=== PATIENT | female | born 1950 | race Caucasian/White ===

== ENCOUNTER → 2017-09-08 | Outpatient (CLI) | payer MEDICARE, BC ==
--- NOTE | 2017-09-08 11:43 | REPMRS ---
Patient History The patient states she had a clinical breast exam in 12/2016. Patient is postmenopausal. Family history of pancreatic cancer in mother at age 89. Benign excisional biopsy of the left breast. Digital Woman Screen Mammo: September 08, 2017 - Exam #: [id number] Bilateral CC and MLO view(s) were taken. Technologist: Kim Leal, Technologist Prior study comparison: March 03, 2015, digital woman screen mammo performed at [facility]. January 08, 2013, left breast digital mammo diagnostic unilateral, performed at [facility]. FINDINGS: There are scattered fibroglandular densities. There is a stable nodule in the upper outer quadrant on the right. Previously noted nodule in the upper outer quadrant on the left has regressed somewhat.There is a moderate amount of residual fibroglandular tissue which is fairly symmetric. There is no interval development of dominant mass, architectural distortion, or clustered microcalcification typical of malignancy. There has been no change in the appearance of the mammogram from the prior studies. ASSESSMENT: BI-RADS/ACR category 2 mammogram. Benign finding(s). Recommendation Routine screening mammogram of both breasts in 1 year (for women over age 40). This mammogram was interpreted with the aid of an FDA-approved computer-aided dectection system. Electronically Signed By: Ahmet Templeton MD 09/08/17 4038
== END ==
LOC: M WHC 10:00
PROVIDERS: ATTEND Family Medicine
DX: Z12.31 Encounter for screening mammogram for malignant neoplasm of breast (principal); Z78.0 Asymptomatic menopausal state; N64.9 Disorder of breast, unspecified; Z13.820 Encounter for screening for osteoporosis
CPT/HCPCS: 77080; G0202

== ENCOUNTER → 2017-12-16 | Outpatient (REF) | payer MEDICARE, BC | LOC: M LAB REF 09:56 | DX: N39.0 Urinary tract infection, site not specified (principal) | CPT/HCPCS: 87086 ==

== ENCOUNTER → 2018-09-25 | Outpatient (CLI) | payer MEDICARE, BC ==
--- NOTE | 2018-09-25 11:20 | REPMRS ---
Patient History The patient states she had a clinical breast exam in 05/05 Family history of pancreatic cancer at age 89 in mother. Benign excisional biopsy of the left breast. Digital Woman Screen Mammo: September 25, 2018 - Exam #: [id number] Bilateral CC and MLO view(s) were taken. Technologist: Nydia Chamorro, Technologist Prior study comparison: September 08, 2017, digital woman screen mammo performed at [facility]. March 03, 2015, digital woman screen mammo performed at [facility]. January 08, 2013, left breast real time ultrasound, performed at [facility]. FINDINGS: There are scattered fibroglandular densities. There has been no change in the appearance of the mammogram from the prior studies. There is a mild amount of scattered fibroglandular density which is fairly symmetric. There is no interval development of dominant mass, architectural distortion, or clustered microcalcification suggestive of malignancy. 3-D tomosynthesis shows no additional findings. Assessment: BI-RADS/ACR category 1 mammogram. Negative. Recommendation Routine screening mammogram of both breasts in 1 year (for women over age 40). This patient's Lifetime Breast Cancer RIsk is estimated at 5.6 %. This mammogram was interpreted with the aid of an FDA-approved computer-aided dectection system. Electronically Signed By: Ahmet Templeton MD 09/25/18 7805
== END ==
LOC: M WHC 09:03
PROVIDERS: ATTEND Obstetrics & Gynecology Female Pelvic Medicine and Reconstructive Surgery
DX: Z12.31 Encounter for screening mammogram for malignant neoplasm of breast (principal)

== ENCOUNTER → 2020-04-17 | Outpatient (CLI) | payer MEDICARE, BC ==
--- NOTE | 2020-05-12 13:59 | REPMRS ---
Patient History The patient states she had a clinical breast exam in 03/2020. Patient is postmenopausal. Family history of pancreatic cancer at age 89 in mother. Benign excisional biopsy of the left breast. No Hormone Replacement Therapy Digital Woman Screen Mammo: April 17, 2020 - Exam #: [id number] Bilateral CC and MLO view(s) were taken. Technologist: Isela Bernal, Technologist Prior study comparison: September 25, 2018, bilateral digital woman screen mammo performed at [facility]. September 08, 2017, digital woman screen mammo performed at [facility]. March 03, 2015, digital woman screen mammo performed at [facility]. FINDINGS: There are scattered fibroglandular densities. The Volpara volumetric breast density category is:B. There has been no change in the appearance of the mammogram from the prior studies. There is a mild amount of scattered fibroglandular density which is fairly symmetric. There is no interval development of dominant mass, architectural distortion, or grouped microcalcification suggestive of malignancy. 3-D tomosynthesis shows no additional findings. Report was delayed due to a protracted computer network disruption experienced by this facility. No significant changes when compared with prior studies. Assessment: BI-RADS/ACR category 1 mammogram. Negative Mammogram. Recommendation Routine screening mammogram of both breasts in 1 year (for women over age 40). This patient's Lifetime Breast Cancer Risk is estimated at 5.0 %. This mammogram was interpreted with the aid of an FDA-approved computer-aided dectection system. Electronically Signed By: Ahmet Templeton MD 05/12/20 4615
== END ==
LOC: M WHC 10:31
PROVIDERS: ATTEND Obstetrics & Gynecology Female Pelvic Medicine and Reconstructive Surgery
DX: Z12.31 Encounter for screening mammogram for malignant neoplasm of breast (principal)

== ENCOUNTER → 2020-04-17 | Outpatient (CLI) | payer MEDICARE, BC ==
--- NOTE | 2020-05-19 13:20 | DEXA ---
AP SPINE L2 - L4 1.306 0.9 2.6 LT FEMUR TOTAL 0.912 -0.8 0.6 LT NECK 0.862 -1.3 0.4 RT FEMUR TOTAL 0.898 -0.9 0.5 RT NECK 0.803 -1.7 0.0 TOTAL BODY TOTAL OTHER COMMENTS: Normal Bone Densitometry of the spine. There is low bone density of the hips. The density of the spine has increased 21.8% since the initial exam on 01/04/2010. The increased 4.2% since the most recent exam on 09/08/2017. The density of the left hip has decreased 9.7% since the initial exam on 01/04/2010. The density of the left hip has increased 2.9% since the most recent exam on 09/08/2017. The density of the right hip has increased 3.8% since the initial exam on 01/04/2010. The density of the right hip has increased 3.8% since the most recent exam on 09/08/2017. FOLLOW-UP: Recommendation for the next bone density exam: 2 years. NESHA
== END ==
LOC: M WHC 10:39
PROVIDERS: ATTEND Family Medicine
DX: M81.0 Age-related osteoporosis without current pathological fracture (principal); Z12.31 Encounter for screening mammogram for malignant neoplasm of breast

== ENCOUNTER → 2020-12-08 | Outpatient (REF) | payer MEDICARE, BC ==
[~2020-12-08] MED LIST: ATOR1TAB19; BISO5TAB14; HYDR-3715 PO; HYDR12.55; NORV5TAB PO
== END ==
LOC: M LAB REF 13:44
PROVIDERS: ATTEND Dermatology
DX: L72.0 Epidermal cyst (principal)

== ENCOUNTER → 2020-12-22 | Outpatient (REF) | payer MEDICARE, BC | LOC: M LAB REF 13:50 | PROVIDERS: ATTEND Dermatology | DX: L72.0 Epidermal cyst (principal) ==

== ENCOUNTER 2021-01-03 12:23 | Emergency (ER) | payer MEDICARE, BC ==
[~2021-01-03] VITALS: Ht 167.6 cm; Wt 86.4 kg
[2021-01-03] MEDS ORDERED: ATOR1TAB19 (12:37)
[2021-01-03] MEDS ORDERED: BISO5TAB14 (12:37)
[2021-01-03] MEDS ORDERED: HYDR12.55 (12:37)
[2021-01-03] MEDS ORDERED: NORCO, ANEXSIA 5/325MG TABLET (HYDROcodone/ACETAMINOPHEN) PO ONE (13:25)
--- NOTE | 2021-01-03 13:47 | REP ---
INDICATION: right knee pain. COMPARISON: None. TECHNIQUE: Five views of the right knee are provided. FINDINGS: Five views of the right knee demonstrate normal bones, joints, and soft tissues. No fracture or subluxation is seen. No opaque foreign body noted. IMPRESSION: Negative right knee series. <Electronically signed by Ahmet Templeton > 01/03/21 0048
--- NOTE | 2021-01-03 15:04 | REP ---
INDICATION: right posterior knee pain; assess for Bakers cyst. COMPARISON: None. TECHNIQUE: Soft tissue sonography right popliteal fossa with Doppler. FINDINGS: Soft tissue sonography in the popliteal fossa shows no evidence of venous thrombosis, popliteal artery aneurysm, or Benjamin's cyst. No mass or other fluid collection is seen. IMPRESSION: Unremarkable sonography of the popliteal fossa soft tissues. <Electronically signed by Ahmet Templeton > 01/03/21 [id number]
[2021-01-03] MEDS ORDERED: HYDR-3715 PO (15:33)
[2021-01-03 16:04] VITALS: BP 220/100
[2021-01-04] MEDS ORDERED: NORV5TAB PO (21:39)
== END 2021-01-03 16:07 | disposition home or self-care (01) ==
LOC: M ED 12:23
DX: S86.911A Strain of unspecified muscle(s) and tendon(s) at lower leg level, right leg, initial encounter (principal); X58.XXXA Exposure to other specified factors, initial encounter; Y92.89 Other specified places as the place of occurrence of the external cause; I10 Essential (primary) hypertension; E78.5 Hyperlipidemia, unspecified; Z79.899 Other long term (current) drug therapy

== ENCOUNTER 2021-01-04 16:12 | Emergency (ER) | payer MEDICARE, BC ==
[~2021-01-04] VITALS: Ht 167.6 cm; Wt 86.4 kg
[~2021-01-04 16:12] MED LIST changes: -NORV5TAB PO
--- NOTE | 2021-01-04 16:48 | REP ---
INDICATION: CHEST PAIN COMPARISON: 01/06/2015 TECHNIQUE: PA and lateral. FINDINGS: The mediastinum and cardiac silhouette are normal. The lung mcdowell are clear and without acute consolidation, effusion, or pneumothorax. The skeletal structures are intact and normal. IMPRESSION: No acute cardiopulmonary process. <Electronically signed by Eleazar Cam > 01/04/21 0797
[2021-01-04 20:05] LABS: BASO % 0.4 % (0.0-1.0); EOS # 0.1 10^3/uL (0.0-0.5); EOS % 1.7 % (0.0-3.0); HEMOGLOBIN 14.1 g/dl (12.0-15.5); LYMPH # 2.3 10^3/uL (1.5-5.0); LYMPH % 30.3 % (24.0-44.0); MEAN CORPUSCULAR HEMOGLOBIN 29.1 pg (27.0-33.0); MEAN CORPUSCULAR HGB CONC 32.8 g/dl (32.0-36.5); MEAN CORPUSCULAR VOLUME 88.8 fl (80.0-96.0); MONO # 0.9 10^3/uL (0.0-0.8); MONO % 11.8 % (2.0-8.0); NEUTROPHILS # 4.3 10^3/uL (1.5-8.5); NEUTROPHILS % 55.4 % (36.0-66.0); PLATELET COUNT, AUTOMATED 243 10^3/uL (150-450); RED BLOOD COUNT 4.84 10^6/uL (4.00-5.40); WHITE BLOOD COUNT 7.7 10^3/uL (4.0-10.0)
[2021-01-04 20:18] LABS: INR 0.98; PROTHROMBIN TIME 13.2 SECONDS (12.5-14.3)
[2021-01-04] MEDS ORDERED: NS 1,000 ML IV ONE (20:25)
[2021-01-04] MEDS ORDERED: KETOROLAC 30 MG/ML 1ML VIAL IV ONE (20:25)
[2021-01-04 20:27] LABS: ALBUMIN 4.2 GM/DL (3.2-5.2); ALT/SGPT 48 U/L (12-78); BILIRUBIN,DIRECT 0.1 MG/DL (0.0-0.2); BLOOD UREA NITROGEN 21 MG/DL (7-18); CALCIUM LEVEL 10.1 MG/DL (8.8-10.2); CARBON DIOXIDE LEVEL 28 MEQ/L (21-32); CHLORIDE LEVEL 103 MEQ/L (98-107); CK-MB VALUE MASS 1.1 NG/ML (<3.6); CPK CREATINE PHOSPHOKINASE 190 U/L (26-192); CREATININE FOR GFR 0.85 MG/DL (0.55-1.30); GLOMERULAR FILTRATION RATE > 60.0 (>45); GLUCOSE, FASTING 87 MG/DL (70-100); MB/CK RELATIVE INDEX 0.58 (< OR =4); NT-PRO BNP 53 PG/ML (<125); POTASSIUM SERUM 4.5 MEQ/L (3.5-5.1); SODIUM LEVEL 138 MEQ/L (136-145); TOTAL PROTEIN 7.7 GM/DL (6.4-8.2); TROPONIN I < 0.02 NG/ML (< 0.10)
[2021-01-04 20:28] LABS: FREE T4 0.89 NG/DL (0.76-1.46); LIPASE 183 U/L (73-393)
[2021-01-04] MEDS ORDERED: cloNIDine 0.2 MG TAB PO ONE (20:40)
[2021-01-04 20:49] VITALS: BP 222/88
[2021-01-04 21:36] VITALS: BP 148/78
[2021-01-04] MEDS ORDERED: NORV5TAB PO (21:39)
--- NOTE | 2021-01-04 22:42 | ECGEPIP ---
[facility] - ED Test Date: 2021-01-04 Pat Name: ANA MARIA PADILLA Department: Room: - Gender: Female [employer]: : 1950 Requested By: Newton Garay Order Number: [id number] Reading MD: Pepito Pacheco Measurements Intervals [place] Rate: 57 P: 17 NH: 162 QRS: -3 QRSD: 90 T: 56 QT: 454 QTc: 441 Interpretive Statements Sinus bradycardia Nonspecific ST-T wave abnormalities Similar to tracing done 01-06-15 Electronically Signed on 01-04-2021 22:42:22 EDT by Pepito Pacheco
== END 2021-01-04 22:13 | disposition home or self-care (01) ==
LOC: M ED 16:12
DX: I10 Essential (primary) hypertension (principal); E78.5 Hyperlipidemia, unspecified; Z79.899 Other long term (current) drug therapy
CPT/HCPCS: 36415; 71046; 80048; 80076; 82550; 82553; 83690; 83880; 84439; 84443; 84484; 85025; 85610; 85730; 93005; 96361; 96374; 99284; J1885

== ENCOUNTER → 2021-02-11 | Outpatient (REF) | payer MEDICARE, BC ==
[~2021-02-11] MED LIST changes: +NORV5TAB PO
== END ==
LOC: M LAB REF 14:06
PROVIDERS: ATTEND Physician Assistant
DX: L72.8 Other follicular cysts of the skin and subcutaneous tissue (principal)

== ENCOUNTER → 2021-02-25 | Outpatient (CLI) | payer MEDICARE, BC ==
[~2021-02-25] MED LIST changes: +E-Z-GAS II EFFERVESCENT PACKET (SODIUM BICARB./CITRIC ACID/SIMETHICONE) As Ordered ONE; +E-Z-HD 98% w/w 340GM SUSP BTL As Ordered ONE; +E-Z-PAQUE 96% w/w SUSP 176GM BTL As Ordered ONE
--- NOTE | 2021-02-26 18:38 | REP ---
INDICATION: DYSPHAGIA. COMPARISON: None. TECHNIQUE: This procedure was performed under the direct supervision of Dr. Diamond. Images were reviewed with Dr. Diamond. Liquid barium and gas producing granules were given in the erect position as well as liquid barium in the prone oblique positions in order to perform a double contrast esophagram examination. A combination of fluoroscopy, spot films and last image hold technology was utilized. 0.9 minutes of fluoro time was utilized for this procedure. FINDINGS: A single view PA chest x-ray is submitted as a privacy analyst film. There is no change compared to a previous chest x-ray performed on 01/04/2021.. The oral and pharyngeal stages of deglutition are unremarkable. Esophageal transport is prompt and efficient and there is no esophagitis, stricture or mucosal ring. There is a small sliding-type hiatal hernia.There is gastroesophageal reflux demonstrated to the level of the thoracic inlet IMPRESSION: There is a small sliding-type hiatal hernia. There is gastroesophageal reflux demonstrated to the level of the thoracic inlet. <Electronically signed by Chuy Paula > 02/25/21 1637 <Electronically signed by Marky Diamond > 02/26/21 0144
== END ==
LOC: M RAD 08:41
PROVIDERS: ATTEND Physician Assistant Medical
DX: R13.10 Dysphagia, unspecified (principal); K44.9 Diaphragmatic hernia without obstruction or gangrene; K21.9 Gastro-esophageal reflux disease without esophagitis

== ENCOUNTER 2021-05-19 13:17 | Emergency (ER) | payer MEDICARE, BC ==
[~2021-05-19] VITALS: Ht 167.6 cm; Wt 86.1 kg
[~2021-05-19 13:17] MED LIST changes: -E-Z-GAS II EFFERVESCENT PACKET (SODIUM BICARB./CITRIC ACID/SIMETHICONE) As Ordered ONE; -E-Z-HD 98% w/w 340GM SUSP BTL As Ordered ONE; -E-Z-PAQUE 96% w/w SUSP 176GM BTL As Ordered ONE
[2021-05-19 13:18] VITALS: BP 179/81
== END 2021-05-19 13:39 | disposition left against medical advice (07) ==
LOC: M ED 13:17
DX: Z53.29 Procedure and treatment not carried out because of patient's decision for other reasons (principal)

== ENCOUNTER → 2021-06-03 | Outpatient (CLI) | payer MEDICARE, BC ==
--- NOTE | 2021-06-03 10:14 | REP ---
INDICATION: EDWIN SCR MAMMO/Z12.31. COMPARISON: Multiple TECHNIQUE: Digital screening mammography was carried out bilaterally in the CC and MLO projections using both 2D and 3D modalities and compared to the prior exams. By history, the patient has no complaints of a palpable breast abnormality or other significant breast complaints. FINDINGS: The breasts are unchanged in size and shape. Scattered dense heterogenous fibroglandular elements are again seen bilaterally in a stable appearing pattern. There are no anthony soft tissue densities or spiculated masses. There is no internal architectural distortion. In the lower inner quadrant of the right breast there is a new grouping of calcifications within 1 sq cm breast tissue which appear to have a variance in size, shape, and radiographic density. There are other calcifications seen bilaterally which are stable and benign. The Volpara volumetric breast density pattern is b. IMPRESSION: BIRADS/ACR category 0 mammogram. Right breast calcifications as described above for which diagnostic digital magnified spot compression views are recommended in the CC and true lateral projections. This patient's Tyrer-Cuzick lifetime breast cancer risk assessment score is 4.7%. This mammogram was interpreted with the aid of an FDA-approved computer-aided detection system. The patient states she had a clinical breast exam in over a year. The patient letter being requested is M0. RECOMMENDATION: As above <Electronically signed by mOar Esparza > 06/03/21 1011
== END ==
LOC: M WHC 09:21
PROVIDERS: ATTEND Obstetrics & Gynecology Female Pelvic Medicine and Reconstructive Surgery
DX: Z12.31 Encounter for screening mammogram for malignant neoplasm of breast (principal)

== ENCOUNTER → 2021-06-15 | Outpatient (CLI) | payer MEDICARE, BC ==
--- NOTE | 2021-06-15 09:03 | REP ---
INDICATION: ADD VIEWS RIGHT CALCS. COMPARISON: Multiple TECHNIQUE: Diagnostic digital magnified spot compression views of the right breast over a grouping of calcifications in the lower inner quadrant was carried out in the CC, MLO, and true lateral projections. FINDINGS: The calcifications seen in the right breast lower inner quadrant vary in size, shape, and radiographic density. These have a suspicious appearance. Malignancy cannot be ruled out. IMPRESSION: BIRADS/ACR category 4 mammogram. Right breast calcifications as described above and for which biopsy is recommended. The patient letter being requested is M4. RECOMMENDATION: As above <Electronically signed by Omar Esparza > 06/15/21 0879
== END ==
LOC: M WHC 08:00
PROVIDERS: ATTEND Obstetrics & Gynecology Female Pelvic Medicine and Reconstructive Surgery
DX: Z12.31 Encounter for screening mammogram for malignant neoplasm of breast (principal); N64.9 Disorder of breast, unspecified

== ENCOUNTER → 2021-06-29 | Outpatient (CLI) | payer MEDICARE, BC ==
[2021-06-29 08:54] VITALS: BP 140/72
--- NOTE | 2021-06-29 10:38 | REP ---
INDICATION: OTHER DISDR BREAST RIGHT STEREO BX. COMPARISON: 06/03/2021, 06/15/2021. TECHNIQUE: ML and CC views right breast performed following stereotactic biopsy of microcalcifications in the medial aspect of the right breast. FINDINGS: A biopsy clip is seen at the appropriate site of stereotactic biopsy in the medial right breast. There is a small amount of post biopsy hematoma at that location. IMPRESSION: Stereotactic biopsy right breast with marker clip placed medially at the site of the previously identified clustered microcalcifications. RECOMMENDATION: None. <Electronically signed by Marky Diamond > 06/29/21 0900
--- NOTE | 2021-06-29 15:52 | REP ---
INDICATION: OTHER DISDR BREAST RIGHT STEREO BX. COMPARISON: 06/03/2021, 06/15/2021. TECHNIQUE: Specimen radiograph performed. FINDINGS: Multiple tiny calcifications are seen in the specimens. IMPRESSION: Successful stereotactic sampling of clustered microcalcifications medial right breast. RECOMMENDATION: None. <Electronically signed by Marky Diamond > 06/29/21 1549
--- NOTE | 2021-06-29 15:52 | REP ---
INDICATION: OTHER DISDR BREAST RIGHT STEREO BX. COMPARISON: None. TECHNIQUE: This procedure is performed by Ana Ferguson RUST, under the direct supervision of Dr. Diamond. The risks and benefits of the procedure were explained to the patient and informed consent was obtained both verbally and written. Directly prior to the start of the procedure, a formal timeout was done in the procedure room. The cranial caudal inferior to superior approach was utilized on the prone table. The right breast microcalcification's were localized using mammographic guidance. The skin was prepped and draped in a sterile fashion. Three ml of buffered lidocaine was used as a local anesthetic. FINDINGS: A 10 gauge mammotome vacuum assisted biopsy device was inserted and advanced into the breast lesion and 6 core biopsy samples were obtained. A marker clip shaped 3 was placed at the biopsy site. The patient tolerated the procedure well and there were no immediate complications. After the appropriate amount of monitored convalescence the patient was discharged from the department. IMPRESSION: Stereotactic guided right breast biopsy with micro clip placement. <Electronically signed by Ana Ferguson > 06/29/21 1037 <Electronically signed by Marky Diamond > 06/29/21 1548
== END ==
LOC: M WHCPRO 07:34
PROVIDERS: ATTEND Obstetrics & Gynecology Female Pelvic Medicine and Reconstructive Surgery
DX: D05.11 Intraductal carcinoma in situ of right breast (principal)

== ENCOUNTER → 2021-07-22 | Outpatient (CLI) | payer MEDICARE, BC ==
[~2021-07-22] MED LIST changes: +AMLO1TAB25; +HYDR-3490
[2021-07-22 11:41] LABS: CALCIUM LEVEL 9.8 MG/DL (8.8-10.2); CREATININE FOR GFR 0.99 MG/DL (0.55-1.30); POTASSIUM SERUM 3.3 MEQ/L (3.5-5.1)
== END ==
LOC: M LAB 10:18
PROVIDERS: ATTEND Surgery
DX: D05.11 Intraductal carcinoma in situ of right breast (principal)

== ENCOUNTER 2021-07-23 15:36 | Emergency (ER) | payer MEDICARE, BC ==
[~2021-07-23] VITALS: Ht 167.6 cm; Wt 85.7 kg
[~2021-07-23 15:36] MED LIST changes: -AMLO1TAB25; -HYDR-3490
[2021-07-23] MEDS ORDERED: AMLO1TAB25 (15:53)
[2021-07-23] MEDS ORDERED: HYDR-3490 (15:53)
[2021-07-23 17:28] LABS: BASO % 0.2 % (0.0-1.0); EOS # 0.1 10^3/uL (0.0-0.5); HEMATOCRIT 40.8 % (36.0-47.0); HEMOGLOBIN 13.3 g/dl (12.0-15.5); LYMPH # 1.9 10^3/uL (1.5-5.0); LYMPH % 23.7 % (24.0-44.0); MEAN CORPUSCULAR HEMOGLOBIN 29.1 pg (27.0-33.0); MEAN CORPUSCULAR HGB CONC 32.6 g/dl (32.0-36.5); MEAN CORPUSCULAR VOLUME 89.3 fl (80.0-96.0); NEUTROPHILS % 62.9 % (36.0-66.0); PLATELET COUNT, AUTOMATED 220 10^3/uL (150-450); RED BLOOD COUNT 4.57 10^6/uL (4.00-5.40)
[2021-07-23 17:39] LABS: INR 0.95
[2021-07-23 17:40] LABS: PARTIAL THROMBOPLASTIN TIME 36.7 SECONDS (25.9-37.0)
--- NOTE | 2021-07-23 18:17 | REP ---
INDICATION: swelling, pain, no injury. TECHNIQUE: Multiple ultrasonographic images of the deep venous structures of the left thigh were obtained from the level of the common femoral vein to the popliteal vein in the longitudinal and transverse scan planes along with Doppler interrogation and color flow Doppler imaging. Comparison images of the contralateral left common femoral vein with compression were done. Additional imaging through the calf is also performed. FINDINGS: There is no abnormal echogenic material seen within any of the visualized deep venous structures of the thigh through the popliteal fossa that would suggest acute thrombosis. Coaptation is unremarkable throughout. Doppler interrogation shows an expected response to respiratory variability and augmentation. The color flow Doppler images show what appears to be a normal vascular pattern throughout. Peroneal vein and posterior tibial veins could not be seen secondary to lower extremity edema in the right calf. However there is a hypoechoic focus 11.9 x 2.2 x 4.3 cm deep to the fascia and subcutaneous fat, intramuscular. This has no color flow within it. IMPRESSION: 1. There is no ultrasonographic evidence of deep venous thrombosis involving any of the visualized deep venous structures of the left thigh as described above. 2. There is a posterior left calf 11.9 x 2.2 by 4.3 cm hypoechoic focus consistent with fluid, most likely hematoma. There was no color flow through this. This is intramuscular and deep to the subcutaneous soft tissues. 3. The calf veins could not be seen due to associated swelling. Accredited by the [employer] in Vascular Peripheral Ultrasound. <Electronically signed by Stepan Stout > 07/23/21 6139
[2021-07-23 18:19] LABS: BLOOD UREA NITROGEN 18 MG/DL (7-18); C REACTIVE PROTEIN QUANTITATIV 0.57 MG/DL (0.00-0.30); CALCIUM LEVEL 9.7 MG/DL (8.8-10.2); CARBON DIOXIDE LEVEL 25 MEQ/L (21-32); CHLORIDE LEVEL 106 MEQ/L (98-107); CREATININE FOR GFR 0.82 MG/DL (0.55-1.30); GLOMERULAR FILTRATION RATE > 60.0 (>39); GLUCOSE, FASTING 95 MG/DL (70-100); POTASSIUM SERUM 3.9 MEQ/L (3.5-5.1); SODIUM LEVEL 141 MEQ/L (136-145)
[2021-07-23 18:21] LABS: ERYTHROCYTE SEDIMENTATION RATE 33 mm/hr (0-30)
[2021-07-23 18:55] VITALS: BP 122/76
--- NOTE | 2021-07-24 06:46 | ED PDOC ---
Post-Departure Follow-Up dr pennington and hal meza faxed formal report of us extemity for Maria R Alonso MD Jul 24, 2021 06:46
== END 2021-07-23 18:57 | disposition home or self-care (01) ==
LOC: M ED 15:36
DX: S80.11XA Contusion of right lower leg, initial encounter (principal); X58.XXXA Exposure to other specified factors, initial encounter; Y92.89 Other specified places as the place of occurrence of the external cause; I10 Essential (primary) hypertension; E78.5 Hyperlipidemia, unspecified; Z79.899 Other long term (current) drug therapy

== ENCOUNTER 2021-12-04 04:02 | Emergency (ER) | payer MEDICARE, BC ==
[~2021-12-04] VITALS: Ht 167.6 cm; Wt 84.1 kg
[~2021-12-04 04:02] MED LIST changes: +AMLO1TAB25 PO; -ATOR1TAB19; +ATOR1TAB19 PO; -BISO5TAB14; +BISO5TAB14 PO; +HYDR-3490 PO
[2021-12-04 05:20] LABS: BASO % 0.2 % (0.0-1.0); EOS # 0.1 10^3/uL (0.0-0.5); EOS % 1.1 % (0.0-3.0); HEMATOCRIT 41.4 % (36.0-47.0); HEMOGLOBIN 13.7 g/dl (12.0-15.5); LYMPH # 1.3 10^3/uL (1.5-5.0); LYMPH % 22.6 % (24.0-44.0); MEAN CORPUSCULAR HGB CONC 33.1 g/dl (32.0-36.5); MEAN CORPUSCULAR VOLUME 87.5 fl (80.0-96.0); MONO # 0.6 10^3/uL (0.0-0.8); MONO % 10.3 % (2.0-8.0); NEUTROPHILS # 3.7 10^3/uL (1.5-8.5); NEUTROPHILS % 65.1 % (36.0-66.0); PLATELET COUNT, AUTOMATED 187 10^3/uL (150-450); RED BLOOD COUNT 4.73 10^6/uL (4.00-5.40); WHITE BLOOD COUNT 5.6 10^3/uL (4.0-10.0)
[2021-12-04 05:31] LABS: CK-MB VALUE MASS < 1.0 NG/ML (<3.6); CPK CREATINE PHOSPHOKINASE 127 U/L (26-192); MB/CK RELATIVE INDEX 0.79 (< OR =4)
[2021-12-04 05:40] LABS: BLOOD UREA NITROGEN 18 MG/DL (7-18); CALCIUM LEVEL 8.8 MG/DL (8.8-10.2); CARBON DIOXIDE LEVEL 23 MEQ/L (21-32); CHLORIDE LEVEL 105 MEQ/L (98-107); GLOMERULAR FILTRATION RATE > 60.0 (>39); GLUCOSE, FASTING 169 MG/DL (70-100); MAGNESIUM LEVEL 1.9 MG/DL (1.8-2.4); POTASSIUM SERUM 3.3 MEQ/L (3.5-5.1); SODIUM LEVEL 139 MEQ/L (136-145)
[2021-12-04] MEDS ORDERED: ISOVUE-370 76% 100ML VIAL As Ordered ONE (07:07)
[2021-12-04] MEDS ORDERED: MECLIZINE 25 MG TABLET PO ONE (07:25)
[2021-12-04] MEDS ORDERED: ONDANSETRON 4MG/2ML VIAL IV ONE (08:30)
[2021-12-04] MEDS ORDERED: bisoproloL fumarate 5 MG TAB PO ONE (08:35)
[2021-12-04] MEDS ORDERED: TAMO20TA8 PO (08:45)
[2021-12-04 08:51] VITALS: BP 174/82
[2021-12-04 09:22] LABS: INR 0.98; PROTHROMBIN TIME 13.4 SECONDS (12.7-14.5)
[2021-12-04 09:23] LABS: PARTIAL THROMBOPLASTIN TIME 33.3 SECONDS (25.9-37.0)
[2021-12-04 09:56] LABS: RSV AMPLIFICATION NEGATIVE (NEGATIVE)
[2021-12-04] MEDS ORDERED: ONDA4TAB6 PO (10:51)
[2021-12-04] MEDS ORDERED: MECL-86 PO (10:51)
[2021-12-04 11:05] VITALS: BP 123/58
== END 2021-12-04 11:00 | disposition home or self-care (01) ==
LOC: M ED 04:02
DX: H81.399 Other peripheral vertigo, unspecified ear (principal); I10 Essential (primary) hypertension; E78.9 Disorder of lipoprotein metabolism, unspecified; Z79.899 Other long term (current) drug therapy
CPT/HCPCS: 36415; 70450; 70496; 70498; 70551; 71045; 80048; 82550; 82553; 83735; 84443; 84484; 85025; 85610; 85730; 87631; 93005; 93041; 94760; 96374; 99285; J2405; Q9967

== ENCOUNTER → 2022-06-06 | Outpatient (CLI) | payer MEDICARE, BC ==
[~2022-06-06] MED LIST changes: +MECL-86 PO; +ONDA4TAB6 PO; +TAMO20TA8 PO
== END ==
LOC: M WHC 09:31
PROVIDERS: ATTEND Surgery
DX: Z12.31 Encounter for screening mammogram for malignant neoplasm of breast (principal); D05.11 Intraductal carcinoma in situ of right breast
CPT/HCPCS: 77066; G0279

== ENCOUNTER → 2022-10-19 | Outpatient (CLI) | payer MEDICARE, BC | LOC: M RAD 07:43 | PROVIDERS: ATTEND Family Medicine | DX: K80.20 Calculus of gallbladder without cholecystitis without obstruction (principal); R10.30 Lower abdominal pain, unspecified ==

== ENCOUNTER → 2023-06-16 | Outpatient (CLI) | payer MEDICARE, BC | LOC: M WHC 09:19 | PROVIDERS: ATTEND Internal Medicine Hematology & Oncology | DX: D05.11 Intraductal carcinoma in situ of right breast (principal); Z12.31 Encounter for screening mammogram for malignant neoplasm of breast ==

== ENCOUNTER → 2024-06-19 | Outpatient (CLI) | payer MEDICARE, BC ==
[~2024-06-19] MED LIST changes: +ONDA-282 PO; -ONDA4TAB6 PO
== END ==
LOC: M WHC 09:47
PROVIDERS: ATTEND Obstetrics & Gynecology Female Pelvic Medicine and Reconstructive Surgery
DX: Z12.31 Encounter for screening mammogram for malignant neoplasm of breast (principal)

== ENCOUNTER → 2024-07-10 | Outpatient (CLI) | payer MEDICARE, BC | LOC: M WHC 10:48 | PROVIDERS: ATTEND Obstetrics & Gynecology Female Pelvic Medicine and Reconstructive Surgery | DX: M85.89 Other specified disorders of bone density and structure, multiple sites (principal); Z78.0 Asymptomatic menopausal state; M47.816 Spondylosis without myelopathy or radiculopathy, lumbar region ==

== ENCOUNTER → 2024-08-08 | Outpatient (CLI) | payer MEDICARE, BC ==
[2024-08-08 13:43] LABS: BASO % 0.6 % (0.0-1.0); EOS # 0.1 10^3/uL (0.0-0.5); EOS % 1.5 % (0.0-3.0); HEMOGLOBIN 13.9 g/dl (12.0-15.5); LYMPH % 31.1 % (24.0-44.0); MEAN CORPUSCULAR HEMOGLOBIN 30.2 pg (27.0-33.0); MEAN CORPUSCULAR HGB CONC 33.1 g/dl (32.0-36.5); MEAN CORPUSCULAR VOLUME 91.3 fl (80.0-96.0); MONO # 0.8 10^3/uL (0.0-0.8); MONO % 11.4 % (2.0-8.0); NEUTROPHILS # 3.6 10^3/uL (1.5-8.5); NEUTROPHILS % 55.1 % (36.0-66.0); PLATELET COUNT, AUTOMATED 228 10^3/uL (150-450); WHITE BLOOD COUNT 6.6 10^3/uL (4.0-10.0)
[2024-08-08 14:11] LABS: CREATININE, URINE 92.3 MG/DL
[2024-08-08 14:12] LABS: ALKALINE PHOSPHATASE 67 U/L (35-104); ALT/SGPT 75 U/L (7.0-40); AST/SGOT 61 U/L (<34); BILIRUBIN,TOTAL 0.8 MG/DL (0.3-1.2); BLOOD UREA NITROGEN 17 MG/DL (9-23); CALCIUM LEVEL 9.9 MG/DL (8.3-10.6); CARBON DIOXIDE LEVEL 27 MMOL/L (20-31); CHLORIDE LEVEL 105 MMOL/L (98-107); CHOLESTEROL LEVEL 160 MG/DL (<200); CHOLESTEROL RISK RATIO 2.74 (<5); CREATININE FOR GFR 0.88 MG/DL (0.55-1.30); GLOMERULAR FILTRATION RATE > 60.0 (>39); GLUCOSE, FASTING 96 MG/DL (74-106); HDL CHOLESTEROL 58.3 MG/DL (>40); LDL CHOLESTEROL 68.5 MG/DL (<100); NON-HDL-C 101.7 MG/DL; POTASSIUM SERUM 4.6 MMOL/L (3.5-5.1); SODIUM LEVEL 138 MMOL/L (136-145); TOTAL PROTEIN 7.7 G/DL (5.7-8.2); TRIGLYCERIDES LEVEL 166 MG/DL (<150)
[2024-08-08 14:14] LABS: FREE T4 0.83 NG/DL (0.89-1.76); THYROID STIMULATING HORMONE 2.757 uIU/ML (0.55-4.78)
[2024-08-08 14:26] LABS: HEMOGLOBIN A1c 5.4 % (4.0-6.0)
== END ==
LOC: M PLALAB 10:21
PROVIDERS: ATTEND Student in an Organized Health Care Education/Training Program
DX: Z76.89 Persons encountering health services in other specified circumstances (principal); I10 Essential (primary) hypertension; Z13.220 Encounter for screening for lipoid disorders; Z13.1 Encounter for screening for diabetes mellitus; Z13.29 Encounter for screening for other suspected endocrine disorder; Z13.31 Encounter for screening for depression

== ENCOUNTER → 2024-11-26 | Outpatient (CLI) | payer MEDICARE, BC | LOC: M WHC 08:58 → M RAD 09:38 | PROVIDERS: ATTEND Student in an Organized Health Care Education/Training Program | DX: I10 Essential (primary) hypertension (principal) ==

== ENCOUNTER → 2025-08-08 | Outpatient (CLI) | payer MEDICARE, BC | LOC: M WHC 12:45 | PROVIDERS: ATTEND Internal Medicine Hematology & Oncology | DX: Z12.31 Encounter for screening mammogram for malignant neoplasm of breast (principal) ==

== ENCOUNTER → 2025-08-19 | Outpatient (REF) | payer MEDICARE, BC ==
[2025-08-19 18:19] LABS: APPEARANCE, URINE CLOUDY (CLEAR); BACTERIA, URINE AUTO 1+ (NEGATIVE); BILIRUBIN, URINE AUTO NEGATIVE (NEGATIVE); BLOOD, URINE BLOOD 1+ (NEGATIVE); GLUCOSE, URINE (UA) AUTO NEGATIVE (NEGATIVE); KETONE, URINE AUTO NEGATIVE (NEGATIVE); LEUKOCYTE ESTERASE, URINE AUTO 2+ (NEGATIVE); MUCUS, URINE SMALL (NEGATIVE); NITRITE, URINE AUTO NEGATIVE (NEGATIVE); PROTEIN, URINE AUTO NEGATIVE (NEGATIVE); RBC, URINE AUTO 29 /HPF (0-3); SPECIFIC GRAVITY URINE AUTO 1.017 (1.002-1.035); SQUAMOUS EPITHELIAL CELL UR AU 14 /HPF (0-6); TRANSITIONAL EPITHELIAL AUTO 1 /HPF; UROBILINOGEN, URINE AUTO 0.2 mg/dL (0.0-2.0); WBC, URINE AUTO 157 /HPF (0-3)
== END ==
LOC: M SFHCPLAZ 14:32
PROVIDERS: ATTEND Family Medicine
DX: R39.9 Unspecified symptoms and signs involving the genitourinary system (principal)

== ENCOUNTER → 2025-08-19 | Outpatient (CLI) | payer MEDICARE, BC ==
[2025-08-19 18:46] LABS: PLATELET COUNT, AUTOMATED 248 10^3/uL (150-450)
[2025-08-19 19:02] LABS: ALT/SGPT 80.0 U/L (7.0-40); AST/SGOT 70.0 U/L (<34); CALCIUM LEVEL 10.6 MG/DL (8.3-10.6); CARBON DIOXIDE LEVEL 25.0 MMOL/L (20-31); CHLORIDE LEVEL 104.0 MMOL/L (98-107); CHOLESTEROL LEVEL 149.0 MG/DL (<200); CHOLESTEROL RISK RATIO 2.83 (<5); CREATININE FOR GFR 0.98 MG/DL (0.55-1.30); GLOMERULAR FILTRATION RATE 60.6 (>39); LDL CHOLESTEROL 56.7 MG/DL (<100); NON-HDL-C 96.5 MG/DL; POTASSIUM SERUM 4.3 MMOL/L (3.5-5.1); SODIUM LEVEL 140.0 MMOL/L (136-145); TRIGLYCERIDES LEVEL 199.0 MG/DL (<150)
[2025-08-19 19:05] LABS: FREE T4 0.91 NG/DL (0.89-1.76)
[2025-08-19 19:16] LABS: ESTIMATED AVERAGE GLUCOSE 111.0 MG/DL (60-110)
== END ==
LOC: M PLALAB 15:21
PROVIDERS: ATTEND Family Medicine
DX: Z00.00 Encounter for general adult medical examination without abnormal findings (principal); R39.9 Unspecified symptoms and signs involving the genitourinary system; I10 Essential (primary) hypertension; Z79.899 Other long term (current) drug therapy